=== PATIENT | male | born 1960 | race Caucasian/White ===

== ENCOUNTER 2018-06-16 18:36 | Emergency (ER) | payer MEDICAID ==
[~2018-06-16] VITALS: Ht 170.2 cm; Wt 86.6 kg
[2018-06-16 19:01] VITALS: BP 151/84
--- NOTE | 2018-06-16 19:03 | NUR ---
EKG IN TRIAGE
[2018-06-16] MEDS ORDERED: AMLO10TA PO (19:08)
[2018-06-16] MEDS ORDERED: LISI-420 PO (19:08)
--- NOTE | 2018-06-16 19:11 | NUR ---
EKG REVIEWED BY DR. EMERY. OK TO WAIT IN THE LOBBY FOR AVAIL. BED. PATIENT AMBULATED TO LOBBY. NO DISTRESS
--- NOTE | 2018-06-16 20:00 | NUR ---
PATIENT LEFT WITHOUT BEING SEEN BY DR. EMERY. PT CALLED X3 AT 19:30, 19:45, AND 20:00. NO FURTHER CARE PROVIDED FOR PATIENT.
== END 2018-06-16 19:30 | disposition left against medical advice (07) ==
LOC: MED 18:36
DX: R07.9 Chest pain, unspecified (principal); R05 Cough; R42 Dizziness and giddiness; I10 Essential (primary) hypertension; E78.00 Pure hypercholesterolemia, unspecified; Z53.21 Procedure and treatment not carried out due to patient leaving prior to being seen by health care provider
CPT/HCPCS: 93005

== ENCOUNTER 2018-09-06 21:09 | Emergency (ER) | payer MEDICAID ==
[~2018-09-06] VITALS: Ht 170.2 cm; Wt 87.5 kg
[~2018-09-06 21:09] MED LIST: AMLO10TA PO; LISI-420 PO
[2018-09-06 21:25] VITALS: BP 145/92
--- NOTE | 2018-09-06 21:31 | NUR ---
PT AMBULATED BACK TO [facility]
--- NOTE | 2018-09-06 23:10 | NUR ---
CALLED PT FROM LOBBY, NO ANSWER.
--- NOTE | 2018-09-06 23:20 | NUR ---
CALLED PT FROM LOBBY, NO ANSWER.
--- NOTE | 2018-09-06 23:26 | NUR ---
PATIENT LEFT WITHOUT BEING SEEN BY DR. EMERY. NO FURTHER CARE PROVIDED FOR PATIENT.
== END 2018-09-06 23:25 | disposition left against medical advice (07) ==
LOC: MED 21:09
DX: H57.11 Ocular pain, right eye (principal); I10 Essential (primary) hypertension; E78.5 Hyperlipidemia, unspecified; Z53.21 Procedure and treatment not carried out due to patient leaving prior to being seen by health care provider

== ENCOUNTER 2018-11-01 18:12 | Emergency (ER) | payer MEDICAID ==
[~2018-11-01] VITALS: Ht 170.2 cm; Wt 86.2 kg
[2018-11-01 18:18] VITALS: BP 157/87
--- NOTE | 2018-11-01 18:18 | NUR ---
BIB EMS, C/O WEAKNESS, DIZZINESS, DYSON X 1 DAY. DENIES N/V/D; SKIN IS PINK/WARM/DRY; AAOX4, LUNGS CLEAR BL; HR EVEN AND REGULAR; PT DENIES ANY FEVER, CP, SOB, OR COUGH AT THIS TIME; BEDSIDE MONITOR SHOWS SR. RA. NO SOB. PATIENT STATES PAIN OF 9/10 AT THIS TIME; VSS; PATIENT POSITIONED FOR COMFORT; HOB ELEVATED; BEDRAILS UP X2; BED DOWN. ER MD MADE AWARE OF PT STATUS. PT'S SON AT BEDSIDE.
[2018-11-01] MEDS ORDERED: LORA-476 PO (18:37)
[2018-11-01] MEDS ORDERED: NAPR-54 PO (18:37)
[2018-11-01] MEDS ORDERED: ASPI-1718 PO (18:37)
[2018-11-01] MEDS ORDERED: GABA100C PO (18:37)
[2018-11-01] MEDS ORDERED: OMEP10SU PO (18:37)
[2018-11-01] MEDS ORDERED: VITA1TAB44 PO (18:37)
[2018-11-01] MEDS ORDERED: CARV6.25 PO (18:37)
[2018-11-01] MEDS ORDERED: VITD1000 PO (18:37)
[2018-11-01] MEDS ORDERED: CYAN100T65 PO (18:37)
[2018-11-01 19:05] LABS: BASOPHILS # (AUTO) 0.1 K/uL (0.00-0.22); BASOPHILS % (AUTO) 0.7 % (0.0-2.0); EOSINOPHILS # (AUTO) 0.3 K/uL (0-0.4); EOSINOPHILS % (AUTO) 2.9 % (0.0-4.0); HEMATOCRIT 44.3 % (36-52); HEMOGLOBIN 15.1 g/dL (12.0-18.0); LYMPHOCYTES # (AUTO) 2.8 K/uL (2.0-11.5); LYMPHOCYTES % (AUTO) 25.3 % (20.5-51.1); MEAN CORPUSCULAR HEMOGLOBIN 30 pg (27-31); MEAN CORPUSCULAR HGB CONC 34 g/dL (33-37); MEAN CORPUSCULAR VOLUME 88.7 fL (80-94); MONOCYTES # (AUTO) 0.7 K/uL (0.8-1.0); MONOCYTES % (AUTO) 6.6 % (1.7-9.3); NEUTROPHILS # (AUTO) 7.2 K/uL (1.8-7.7); NEUTROPHILS % (AUTO) 64.5 % (42.2-75.2); PLATELET COUNT (AUTO) 231 K/uL (140-450); RED CELL DISTRIBUTION WIDTH 13.6 % (11.6-13.7); WHITE BLOOD COUNT (AUTO) 11.1 K/uL (4.8-10.8)
[2018-11-01 19:13] LABS: APPEARANCE,URINE CLEAR (CLEAR); BILIRUBIN,URINE NEGATIVE (NEGATIVE); BLOOD, URINE NEGATIVE (NEGATIVE); COLOR,URINE YELLOW (YELLOW); LEUKOCYTE ESTERASE ,URINE NEGATIVE (NEGATIVE); NITRITE, URINE NEGATIVE (NEGATIVE); PH,URINE 6.5 (5.0-9.0); UGLUCOSE NEGATIVE (NEGATIVE)
--- NOTE | 2018-11-01 19:16 | NUR ---
RECEIVED REPORT FROM CLARA ASH. VSS. WILL CONTINUE TO MONITOR.
[2018-11-01 19:21] LABS: ALBUMIN 3.3 g/dL (3.4-5.0); ANION GAP 12.7 (8-16); CARBON DIOXIDE 23.2 mmol/L (21-32); CREATININE 0.9 mg/dL (0.7-1.3); TOTAL BILIRUBIN 0.4 mg/dL (0.0-1.0)
[2018-11-01 19:25] LABS: POTASSIUM 2.9 mmol/L (3.5-5.1)
--- NOTE | 2018-11-01 19:25 | NUR ---
CRITICAL VALUE 2.9 POTASSIUM. ERMD NOTIFIED
--- NOTE | 2018-11-01 19:25 | NUR ---
Dr. Case evaluating patient at bedside.
[2018-11-01] MEDS ORDERED: POTASSIUM CHLORIDE 10 MEQ TABER PO ONE (19:40)
[2018-11-01] MEDS ORDERED: KETOROLAC 60 MG/2 ML VIAL IM ONE (19:40)
--- NOTE | 2018-11-01 20:50 | NUR ---
PT RESTING IN BED COMFORTABLY, EASILY ARROUSABLE. VSS. WILL CONTINUE TO MONITOR.
[2018-11-01 21:02] VITALS: BP 148/88
== END 2018-11-01 21:02 | disposition home or self-care (01) ==
LOC: MED 18:12
DX: R51 Headache (principal); R42 Dizziness and giddiness; Z79.82 Long term (current) use of aspirin; Z79.899 Other long term (current) drug therapy
CPT/HCPCS: 36415; 80053; 81003; 84484; 85025; 93005; 96372; 99284; J1885

== ENCOUNTER 2018-11-02 19:18 | Emergency (ER) | payer MEDICAID ==
[~2018-11-02] VITALS: Ht 170.2 cm; Wt 86.2 kg
[~2018-11-02 19:18] MED LIST changes: +ASPI-1718 PO; +CARV6.25 PO; +CYAN100T65 PO; +GABA100C PO; +LORA-476 PO; +NAPR-54 PO; +OMEP10SU PO; +VITA1TAB44 PO; +VITD1000 PO
[2018-11-02 19:25] VITALS: BP 150/94
--- NOTE | 2018-11-02 19:26 | NUR ---
PT COMES TO ED BIBA C/O HEADACHE , W/ DIZZINESS, NAUSEA, AND INTERMITTENT LEFT SIDE CHEST PAIN. PT WAS CAME TO ER YESTERDAY FOR SAME S/S AND WAS UNABLE TO FILL RX. PT TOOK NAPROSYN 45 MINING CAPTAIN W/ MINOR RELIEF. PT DENIES NUMBNESS TINGLING @ THIS TIME. MONA LOCKED IN LOWEST POSITION. WILL UPDATE ERMD. PMH HTN, HLD, GERD, HERNIA NKA
[2018-11-02] MEDS ORDERED: MECLIZINE 25 MG TAB PO ONE (20:25)
[2018-11-02 21:00] LABS: BASOPHILS # (AUTO) 0.1 K/uL (0.00-0.22); BASOPHILS % (AUTO) 0.7 % (0.0-2.0); EOSINOPHILS # (AUTO) 0.3 K/uL (0-0.4); EOSINOPHILS % (AUTO) 3.1 % (0.0-4.0); HEMATOCRIT 43.3 % (36-52); HEMOGLOBIN 14.4 g/dL (12.0-18.0); LYMPHOCYTES # (AUTO) 3.2 K/uL (2.0-11.5); LYMPHOCYTES % (AUTO) 28.8 % (20.5-51.1); MEAN CORPUSCULAR HEMOGLOBIN 30 pg (27-31); MEAN CORPUSCULAR HGB CONC 33 g/dL (33-37); MEAN CORPUSCULAR VOLUME 89.2 fL (80-94); MONOCYTES # (AUTO) 0.9 K/uL (0.8-1.0); MONOCYTES % (AUTO) 8.5 % (1.7-9.3); NEUTROPHILS # (AUTO) 6.6 K/uL (1.8-7.7); NEUTROPHILS % (AUTO) 58.9 % (42.2-75.2); PLATELET COUNT (AUTO) 224 K/uL (140-450); RED BLOOD CELL COUNT(AUTO) 4.86 MIL/uL (4.20-6.10); RED CELL DISTRIBUTION WIDTH 13.8 % (11.6-13.7); WHITE BLOOD COUNT (AUTO) 11.1 K/uL (4.8-10.8)
[2018-11-02 21:27] LABS: ALBUMIN 3.1 g/dL (3.4-5.0); ANION GAP 12.2 (8-16); CARBON DIOXIDE 25.7 mmol/L (21-32); CREATININE 0.8 mg/dL (0.7-1.3); THYROID STIMULATING HORMONE 4.38 uIU/mL (0.34-3.74); TOTAL BILIRUBIN 0.3 mg/dL (0.0-1.0)
[2018-11-02 21:28] LABS: POTASSIUM 2.9 mmol/L (3.5-5.1)
--- NOTE | 2018-11-02 22:05 | NUR ---
PT HAS EYES CLOSED, AROUSABLE. PT DENIES PAIN @ THIS TIME. NO ACUTE DISTRESS.
--- NOTE | 2018-11-02 22:52 | NUR ---
SPOKE WITH [employer], UPDATE PT CONDITION.
[2018-11-02] MEDS ORDERED: POTASSIUM CHLORIDE 10 MEQ TABER PO SCH (23:00)
--- NOTE | 2018-11-03 00:35 | NUR ---
SPOKE WITH STEPHANIA RN @ [facility], UPDATED REGARDING PT CONDITION. ETA FOR [facility] 0115. ADMITTING MD DR SALGADO. ADMITTED TO 214A
[2018-11-03 00:54] VITALS: BP 128/92
--- NOTE | 2018-11-03 00:54 | NUR ---
[facility] @ BEDSIDE. TRANSFER PACKET, RADIOLOGY CD GIVEN TO TRANSPORT TEAM. UPDATED REGARDING PT CONDITION. NO ACUTE DISTRESS NOTED.
--- NOTE | 2018-11-03 00:57 | NUR ---
Patient to be transferred to [facility]. Is being transferred due to HIGHER LEVEL OF CARE. Receiving facility has accepting physician and available space. physician has signed transfer form. Patient or responsible libertarian has agreed to transfer and signed form. Patient belongings inventoried and will be sent with patient. Copy of nursing notes, lab reports, EKG, Physicians Orders and X-rays to be sent with patient. Report called to STEPHANIA ELIZABETH at receiving facility. [facility] ambulance service has been called for transfer. ETA is 0115.
--- NOTE | 2018-11-03 01:02 | NUR ---
REPORT GIVEN TO [facility] [place], NO ACUTE DISTRESS NOTED
== END 2018-11-03 00:54 | disposition short-term general hospital (02) ==
LOC: MED 19:18
DX: J32.9 Chronic sinusitis, unspecified (principal); I10 Essential (primary) hypertension; K21.9 Gastro-esophageal reflux disease without esophagitis; F41.9 Anxiety disorder, unspecified; E78.5 Hyperlipidemia, unspecified; Z79.82 Long term (current) use of aspirin; Z79.899 Other long term (current) drug therapy; Z79.1 Long term (current) use of non-steroidal anti-inflammatories (NSAID); Z86.79 Personal history of other diseases of the circulatory system
CPT/HCPCS: 36415; 70450; 80053; 84443; 85025; 93005; 99285; J8597